=== PATIENT | female | born 1955 | race Caucasian/White ===

== ENCOUNTER 2018-10-12 01:50 | Observation (INO) | payer BC ==
[2018-10-12] MEDS ORDERED: FENTANYL CITRATE INJ/PF 100 MCG/2 ML AMPUL ONE ×3 (03:01→13:52)
[2018-10-12] MEDS ORDERED: FENTANYL CITRATE INJ/PF 100 MCG/2 ML AMPUL IV ONE (03:01)
--- NOTE | 2018-10-12 03:02 | ER Document Report ---
ED Hand/Wrist Injury - General Chief Complaint: Wrist Injury Stated Complaint: ARM PAIN Time Seen by Provider: 10/12/18 02:54 Notes: 60-year-old female ER to ER transfer to see hand surgeon for left radial artery laceration. Patient was opening a package and cut it with a box knife. Surgeons at [facility] could not locate the proximal distal edges of the radial artery. Dr. Colvin insulted with Dr. Calderón who accepted patient. Bleeding was controlled prior to transfer. TRAVEL OUTSIDE OF THE [place] IN LAST 30 DAYS: No - Related Data Allergies/Adverse Reactions: azithromycin Allergy (Verified 10/12/18 02:27) cephalexin [From Keflex] Allergy (Verified 10/12/18 02:22) Past Medical History - General Information source: Patient - Social History Smoking Status: Never Smoker Frequency of alcohol use: None Drug Abuse: None Lives with: Spouse/Significant other Family History: Reviewed & Not Pertinent Patient has suicidal ideation: No Patient has homicidal ideation: No - Past Medical History Cardiac Medical History: Reports: Hx Hypercholesterolemia Renal/ Medical History: Reports: Hx Kidney Stones. Denies: Hx Peritoneal Dialysis GI Medical History: Reports: Hx Gastroesophageal Reflux Disease Past Surgical History: Reports: Hx Cholecystectomy, Hx Gynecologic Surgery - D&C, Hx Tonsillectomy Review of Systems - Review of Systems Notes: Constitutional: denies: Chills, Diaphoresis, Fever, Malaise, Weakness EENT: denies: Eye discharge, Blurred vision, Tearing, Double vision, Nose congestion, Nose discharge, Throat swelling, Mouth pain Cardiovascular: denies: Palpitations, Heart racing, Orthopnea, Dyspnea, Chest pain Respiratory: denies: Cough, Hurts to breathe, Wheezing, Shortness of breath Gastrointestinal: denies: Abdominal pain, Diarrhea, Nausea, Vomiting, Black stools, bright red blood in stool Genitourinary: denies: Burning, Dysuria, Discharge, Frequency, Flank pain, Hematuria Musculoskeletal: denies: Joint pain, Joint swelling, Muscle pain, Muscle stiffness, back pain. Laceration to left wrist radial artery laceration. Hematologic/Lymphatic: denies: Anemia, Easy bleeding, Easy bruising, Blood clots Neurological/Psychological: denies: Confusion, Dementia, Depression, Loss of consciousness Skin: No lesions, no masses, no skin breakdown, no abscesses. Laceration to the left wrist. Physical Exam - Vital signs Vitals: Temp Pulse 97.9 F 65 10/12/18 01:53 10/12/18 01:53 Interpretation: Normal - General General appearance: Appears well, Alert - HEENT Head: Normocephalic, Atraumatic Eyes: Normal Pupils: PERRL - Respiratory Respiratory status: No respiratory distress Chest status: Nontender Breath sounds: Normal Chest palpation: Normal - Cardiovascular Rhythm: Regular Heart sounds: Normal auscultation Murmur: No - Abdominal Inspection: Normal Distension: No distension Bowel sounds: Normal Tenderness: Nontender Organomegaly: No organomegaly - Back Back: Normal, Nontender - Extremities General upper extremity: Tender, Normal color, Normal ROM, Normal temperature, Other - There is a 1 cm deep linear laceration over the radial artery on the volar aspect of the left wrist. Brisk bleeding present after removing dressing. General lower extremity: Normal inspection, Nontender, Normal color, Normal ROM, Normal temperature, Normal weight bearing. No: Richard's sign - Neurological Neuro grossly intact: Yes Cognition: Normal Orientation: AAOx4 [place] Coma Scale Eye Opening: Spontaneous Raymon Coma Scale Verbal: Oriented [place] Coma Scale Motor: Obeys Commands [place] Coma Scale Total: 15 Speech: Normal Motor strength normal: LUE, RUE, LLE, RLE Sensory: Normal - Psychological Associated symptoms: Normal affect, Normal mood - Skin Skin Temperature: Warm Skin Moisture: Dry Skin Color: Normal Course - Re-evaluation Re-evalutation: 10/12/18 03:09 Based on my evaluation there is a deep laceration more likely involving the left radial artery. There was a large amount of bleeding after taking the dressings down so I repacked with some quick clot. Bleeding was controlled with pressure. Will consult with hand specialist shortly. 10/12/18 03:10 Tetanus updated and given at other hospital. Will hold on antibiotics until surgical eval and closer to OR cut time. 10/12/18 07:28 Orthopedic surgeon is here. Will likely take the OR shortly. - Vital Signs Vital signs: Temp Pulse Resp BP Pulse Ox 98.2 F 65 19 99/59 L 97 10/12/18 06:52 10/12/18 01:53 10/12/18 06:01 10/12/18 06:00 10/12/18 06:01 Discharge - Discharge Clinical Impression: Laceration of left radial artery Qualifiers: Encounter type: initial encounter Qualified Code(s): S55.112A - Laceration of radial artery at forearm level, left arm, initial encounter Condition: Good Disposition: ADMITTED INPATIENT Admitting Provider: [facility] Unit Admitted: OR
[2018-10-12] MEDS: CLINDAMYCIN 900 MG/D5W RTU 900 MG/50 ML RTUPB IV SCH ×3 (06:48→21:15)
[2018-10-12] MEDS ORDERED: RINGERS SOLUTION,LACTATED 1,000 ML IV PRN (07:44)
[2018-10-12] MEDS ORDERED: DEXTROSE 40% GEL 15 GM TUBE PO PRN ×2 (07:44)
[2018-10-12] MEDS ORDERED: GLUCAGON,HUMAN RECOMB 1 MG INJ SUBCUT PRN (07:44)
[2018-10-12] MEDS ORDERED: DEXTROSE 50%-WATER 25 GM/50 ML DISP.SYRIN IV PRN ×2 (07:44)
[2018-10-12] MEDS ORDERED: ONDANSETRON HCL INJ/PF 4 MG/2 ML SDV IV PRN ×2 (07:44→12:41)
[2018-10-12] MEDS ORDERED: MORPHINE SULFATE 10 MG/ML INJ IV PRN ×2 (07:47→12:41)
--- NOTE | 2018-10-12 07:51 | PDOC H&P ---
History of Present Illness Admission Date/PCP: 10/12/18 07:40 Patient complains of: Left wrist laceration History of Present Illness: GABBI CHENG is a 63 year old female who on 10/11/2018 inadvertently cut her left wrist opening zip ties. Patient was originally taken to [facility] where the area was irrigated and explored demonstrating possible radial artery laceration with pulsatile bleeding. Compression dressing was placed which did control the bleeding. Patient was then transferred to [place] for definitive treatment. Patient states her pain is currently controlled. She originally had numbness when the tourniquet was on her arm but that has resolved. Current pain /10. Past Medical History Cardiac Medical History: Reports: Hyperlipidema GI Medical History: Reports: Gastroesophageal Reflux Disease Past Surgical History Past Surgical History: Reports: Cholecystectomy, Tonsillectomy Social History Lives with: Spouse/Significant other Smoking Status: Never Smoker Family History Family History: Reviewed & Not Pertinent Parental Family History Reviewed: No Children Family History Reviewed: No Sibling(s) Family History Reviewed.: No Medication/Allergy Allergies/Adverse Reactions: azithromycin Allergy (Verified 10/12/18 02:27) cephalexin [From Keflex] Allergy (Verified 10/12/18 02:22) Review of Systems Constitutional: ABSENT: chills, fever(s), headache(s), weight gain, weight loss Eyes: ABSENT: visual disturbances Ears: ABSENT: hearing changes Cardiovascular: ABSENT: chest pain, dyspnea on exertion, edema, orthropnea, palpitations Respiratory: ABSENT: cough, hemoptysis Gastrointestinal: ABSENT: abdominal pain, constipation, diarrhea, hematemesis, hematochezia, nausea, vomiting Genitourinary: ABSENT: dysuria, hematuria Musculoskeletal: PRESENT: as per HPI Integumentary: ABSENT: rash, wounds Neurological: ABSENT: abnormal gait, abnormal speech, confusion, dizziness, focal weakness, syncope Psychiatric: ABSENT: anxiety, depression, homidical ideation, suicidal ideation Endocrine: ABSENT: cold intolerance, heat intolerance, menstrual abnormalities, polydipsia, polyuria Hematologic/Lymphatic: ABSENT: easy bleeding, easy bruising, lymphadenopathy Physical Exam Vital Signs: Temp Pulse Resp BP Pulse Ox 98.2 F 65 19 99/59 L 97 10/12/18 06:52 10/12/18 01:53 10/12/18 06:01 10/12/18 06:00 10/12/18 06:01 Intake & Output 10/11/18 10/12/18 10/13/18 06:59 06:59 06:59 Weight 84.2 kg General appearance: PRESENT: no acute distress, well-developed, well-nourished Head exam: PRESENT: atraumatic, normocephalic Eye exam: PRESENT: conjunctiva pink, EOMI, PERRLA. ABSENT: scleral icterus Ear exam: PRESENT: normal external ear exam Mouth exam: PRESENT: moist, tongue midline Neck exam: PRESENT: full ROM. ABSENT: carotid bruit, JVD, lymphadenopathy, thyromegaly Respiratory exam: PRESENT: unlabored Cardiovascular exam: PRESENT: RRR. ABSENT: diastolic murmur, rubs, systolic murmur Pulses: PRESENT: normal dorsalis pedis pul, +2 pedal pulses bilateral Vascular exam: PRESENT: normal capillary refill GI/Abdominal exam: PRESENT: normal bowel sounds, soft. ABSENT: distended, guarding, mass, organolmegaly, rebound, tenderness Rectal exam: PRESENT: deferred Musculoskeletal exam: PRESENT: other - Left wrist: Dressing intact no evidence of bleeding through the dressing. Intact DIP/PIP/MCP joint flexion/extension. EPL/FPL intact. Cap refill less than 2 seconds normal skin turgor. Intact sensation to light touch throughout median ulnar nerve distribution. No pain with passive stretch. Compartments soft and compressible no sign of compartment syndrome Neurological exam: PRESENT: alert, awake, oriented to person, oriented to place, oriented to time, oriented to situation, CN II-XII grossly intact. ABSENT: motor sensory deficit Psychiatric exam: PRESENT: appropriate affect, normal mood. ABSENT: homicidal ideation, suicidal ideation Skin exam: PRESENT: dry, intact, warm. ABSENT: cyanosis, rash Assessment & Plan - Diagnosis (1) Laceration of left radial artery Qualifiers: Encounter type: initial encounter Qualified Code(s): S55.112A - Laceration of radial artery at forearm level, left arm, initial encounter Is this a current diagnosis for this admission?: Yes Plan: Patient was transferred due to radial artery laceration however she does have good collateral circulation likely indicative of complete arch and thus ligation of radial artery is a reasonable treatment option at this point we discussed this treatment option and decision was made to proceed with operative intervention which includes exploration left wrist with possible artery repair versus ligation and surgery as indicated. Patient has verbalized understanding and consented for surgical procedure.
[2018-10-12] MEDS ORDERED: PHENYLEPHRINE HCL INJ/PF 10 MG/1 ML SDV ONE (08:11)
[2018-10-12] MEDS ORDERED: GLYCOPYRROLATE 1 MG/5 ML VIAL ONE (08:11)
[2018-10-12] MEDS ORDERED: SUCCINYLCHOLINE CHLORIDE INJ 200 MG/10 ML VIAL ONE (08:11)
--- NOTE | 2018-10-12 08:30 | RADIOLOGY REPORT (SQ) ---
EXAM DESCRIPTION: CHEST SINGLE VIEW COMPLETED DATE/TIME: 10/12/2018 8:03 am REASON FOR STUDY: Preop COMPARISON: None. EXAM PARAMETERS: NUMBER OF VIEWS: One view. TECHNIQUE: Single frontal radiographic view of the chest acquired. RADIATION DOSE: NA LIMITATIONS: None. FINDINGS: LUNGS AND PLEURA: No opacities, masses or pneumothorax. No pleural effusion. MEDIASTINUM AND HILAR STRUCTURES: No masses. Contour normal. HEART AND VASCULAR STRUCTURES: Cardiomegaly. BONES: No acute findings. HARDWARE: None in the chest. OTHER: No other significant finding. IMPRESSION: Cardiomegaly without acute abnormality of the lungs in AP projection. TECHNICAL DOCUMENTATION: JOB ID: [id number] [employer]- All Rights Reserved Reading location - IP/workstation name: [email or web address]
[2018-10-12 09:16] LABS: ABSOLUTE BASOPHILS # (AUTO) 0.1 10^3/uL (0.0-0.2); ABSOLUTE LYMPHOCYTES (AUTO) 2.1 10^3/uL (0.5-4.7); ABSOLUTE MONOCYTES (AUTO) 0.6 10^3/uL (0.1-1.4); ABSOLUTE NEUT (AUTO) 5.4 10^3/uL (1.7-8.2); EOSINOPHILS % (AUTO) 0.4 % (0-6); HEMATOCRIT 36.8 % (36.0-47.0); HEMOGLOBIN 12.4 g/dL (12.0-15.5); LYMPHOCYTES % (AUTO) 26.2 % (13-45); MEAN CORPUSCULAR HEMOGLOBIN 32.3 pg (27.0-33.4); MEAN CORPUSCULAR HGB CONC 33.7 g/dL (32.0-36.0); MEAN CORPUSCULAR VOLUME 96 fl (80-97); MONOCYTES % (AUTO) 6.8 % (3-13); PLATELET COUNT 133 10^3/uL (150-450); RED BLOOD COUNT 3.85 10^6/uL (3.72-5.28); SEGMENTED NEUTROPHILS % (AUTO) 65.6 % (42-78); TOTAL CELLS COUNTED % (AUTO) 100 %; WHITE BLOOD COUNT 8.2 10^3/uL (4.0-10.5)
[2018-10-12 09:31] LABS: BLOOD UREA NITROGEN 19 mg/dL (7-20); CALCIUM 9.2 mg/dL (8.4-10.2); CARBON DIOXIDE 27 mmol/L (22-30); CHLORIDE 110 mmol/L (98-107); GLUCOSE 93 mg/dL (75-110); POTASSIUM 4.4 mmol/L (3.6-5.0); SODIUM 141.4 mmol/L (137-145)
[2018-10-12 09:50] LABS: ANION GAP 5 (5-19)
[2018-10-12] MEDS ORDERED: BUPIVACAINE HCL 0.5 % INJ/PF 30 ML SDV ONE (10:29)
[2018-10-12] MEDS ORDERED: HEPARIN SOD (PORCINE) 1,000 UNIT/ML 10 ML VIAL ONE (10:34)
[2018-10-12] MEDS ORDERED: MIDAZOLAM 2 MG/2 ML INJ ONE (10:40)
[2018-10-12] MEDS ORDERED: ONDANSETRON HCL INJ/PF 4 MG/2 ML SDV ONE (10:41)
[2018-10-12] MEDS ORDERED: DEXAMETHASONE SOD PHOSPHATE INJ 4 MG/1 ML VIAL ONE (10:41)
[2018-10-12] MEDS ORDERED: PROPOFOL INJ 200 MG/20 ML VIAL IV ONE (10:41)
[2018-10-12] MEDS ORDERED: CLINDAMYCIN PHOSPHATE INJ 300 MG/2 ML SDV ONE ×2 (12:28→12:29)
[2018-10-12] MEDS ORDERED: PROMETHAZINE HCL INJ 25 MG/1 ML VIAL IV PRN ×2 (12:41)
[2018-10-12] MEDS ORDERED: FENTANYL CITRATE INJ/PF 100 MCG/2 ML AMPUL IV PRN ×3 (12:41)
[2018-10-12] MEDS ORDERED: MEPERIDINE HCL/PF INJ 25 MG/1 ML DISP.SYRIN IV PRN (12:41)
[2018-10-12] MEDS ORDERED: DIPHENHYDRAMINE HCL 50 MG/ML VIAL IV PRN (12:41)
--- NOTE | 2018-10-12 13:30 | Operative Report ---
Operative Report DATE OF SURGERY: 10/12/18 PREOPERATIVE DIAGNOSIS: Left wrist radial artery laceration POSTOPERATIVE DIAGNOSIS: Same OPERATION: Repair of left wrist radial artery SURGEON: ROVERTO RAPHAEL ANESTHESIA: GA COMPLICATIONS: None ESTIMATED BLOOD LOSS: Minimal PROCEDURE: Indication for above procedure: 63-year-old female who was cutting zip ties when she inadvertently hit her wrist. Patient was taken the [facility] where there was significant bleeding noted. Exploration demonstrated radial artery involvement. At that point patient was sent to [facility] for definitive treatment. After examining the patient we discussed risks and benefits of the operative procedure patient verbalized understanding consented for surgical procedure. Procedure In Detail: Patient was seen and evaluated in the preoperative holding area. The LEFT upper extremity was initialized and marked. Patient received 600 mg of clindamycin IV IV for bacterial prophylaxis. Patient was taken back to the operative room where transferred to the operative table and placed under general anesthesia. Once they were adequately anesthetized a nonsterile tourniquet was placed on the upper extremity. A surgical team debriefing was performed ensuring all instrumentation was available, the surgical procedure was discussed with possible concerns reviewed. Tourniquet was placed around the left upper extremity and inflated to 250 mmHg. Extremity was prepped with Betadine and draped in a sterile fashion. Timeout was done identifying correct patient extremity and procedure everyone in attendance previous and verbalized no concerns. The patient's 1 cm laceration was extended proximally and distally. Blunt dissection was performed. The superficial radial nerve was identified and remained intact neuro lysis was performed. No tendon involvement including the FCR or first dorsal compartment tendons. The radial artery and its venous communicantes were identified. The small veins were coagulated with bipolar cautery. The radial artery edges were then debrided and adventitia stripped. Tourniquet was then deflated heparinized saline was placed through the proximal and distal aspect to ensure adequate flow. Once flow was reestablished clamp was placed proximally and distally. The artery was then reapproximated with mul tiple 8 oh simple nylon sutures. At completion of anastomosis clamps were removed and adequate flow was determined proximally and distally. Patient had normal capillary refill and skin turgor. Wound was copiously irrigated with normal saline. Skin was closed with interrupted 4-0 nylon suture. Wound was dressed Xeroform 4 x 4's and patient was placed in a volar resting splint. Sponge counts, instrument counts, needle counts were correct. Patient was then awoken from anesthesia. Transferred from the operating room table to the operating room stretcher. There was no intraoperative complications patient tolerated procedure well stable to PACU. Postop plan: Patient will be discharged home on 10/13/2018 with p.o. antibiotics and aspirin.
[2018-10-12] MEDS ORDERED: ENOXAPARIN SODIUM INJ 40 MG/0.4 ML DISP.SYRIN SUBCUT SCH (17:00)
[2018-10-12 23:27] VITALS: BP 104/56
[2018-10-13] MEDS: CLINDAMYCIN 900 MG/D5W RTU 900 MG/50 ML RTUPB IV SCH (05:04)
--- NOTE | 2018-10-13 07:55 | PDOC DISCHARGE SUMMARY ---
General - Admit/Disc Date/PCP Admission Date/Primary Care Provider: 10/12/18 07:40 Discharge Date: 10/13/18 - Discharge Diagnosis (1) Laceration of left radial artery Is this a current diagnosis for this admission?: Yes - Additional Information Resuscitation Status: Full Code Discharge Diet: As Tolerated Discharge Activity: No Lifting Over 10 Pounds, No Lifting/Push/Pulling Home Medications: Atorvastatin Calcium [Lipitor 10 mg Tablet] 10 mg PO QHS 10/12/18 Cetirizine HCl [Zyrtec 10 mg Tablet] 10 mg PO DAILY 10/12/18 Cholecalciferol (Vitamin D3) [Vitamin D3 1000 Unit Tablet] 1,000 unit PO DAILY 10/12/18 Cyanocobalamin (Vitamin B-12) [Vitamin B-12 1000 mcg Tablet] 1,000 mcg PO DAILY 10/12/18 [place]-3/Dha/Epa/Fish Oil [Fish Oil Dr 500 mg Softgel] 1,500 mg PO BID 10/12/18 Pantoprazole Sodium [Protonix [address] Tablet] 40 mg PO DAILY 10/12/18 Potassium Citrate [Potassium Citrate ER] 10 meq PO BID 10/12/18 History of Present Illness History of Present Illness: GABBI CHENG is a 63 year old female who on 10/11/2018 inadvertently cut her left wrist opening zip ties. Patient was originally taken to [facility] where the area was irrigated and explored demonstrating possible radial artery laceration with pulsatile bleeding. Compression dressing was placed which did control the bleeding. Patient was then transferred to [place] for definitive treatment. Patient states her pain is currently controlled. She originally had numbness when the tourniquet was on her arm but that has resolved. Current pain 4/10. Hospital Course Hospital Course: Patient was admitted to the orthopedic service on 10/12/2018. Underwent radial artery repair on 10/12/2018. Patient tolerated procedure well. On postop day #1 pain was controlled. No issues overnight. Was started on DVT prophylaxis and a ntibiotics prophylactically. Patient progressed appropriate throughout her hospital course and decision was made for discharge to home. Physical Exam Vital Signs: Temp Pulse Resp BP Pulse Ox 98.0 F 60 16 104/56 L 94 10/12/18 23:26 10/12/18 23:26 10/12/18 23:26 10/12/18 23:26 10/12/18 23:26 Intake & Output 10/12/18 10/13/18 10/14/18 06:59 06:59 06:59 Intake Total 1744 Output Total 6 Balance 1738 Weight 84.2 kg 71.6 kg General appearance: PRESENT: no acute distress, well-developed, well-nourished Head exam: PRESENT: atraumatic, normocephalic Eye exam: PRESENT: conjunctiva pink, EOMI, PERRLA. ABSENT: scleral icterus Ear exam: PRESENT: normal external ear exam Mouth exam: PRESENT: moist, tongue midline Neck exam: PRESENT: full ROM. ABSENT: carotid bruit, JVD, lymphadenopathy, thyromegaly Cardiovascular exam: PRESENT: RRR. ABSENT: diastolic murmur, rubs, systolic murmur Pulses: PRESENT: normal dorsalis pedis pul, +2 pedal pulses bilateral Vascular exam: PRESENT: normal capillary refill GI/Abdominal exam: PRESENT: normal bowel sounds, soft. ABSENT: distended, guarding, mass, organolmegaly, rebound, tenderness Rectal exam: PRESENT: deferred Musculoskeletal exam: PRESENT: other - Left upper extremity: Splint intact. Intact DIP/PIP joint flexion. EPL/FPL intact. Hypoesthesias on the dorsum of the thumb proximal phalanx. Cap refill less than 2 seconds. Normal skin turgor. Compartments soft and compressible no sign of compartment syndrome. Neurological exam: PRESENT: alert, awake, oriented to person, oriented to place, oriented to time, oriented to situation, CN II-XII grossly intact. ABSENT: motor sensory deficit Psychiatric exam: PRESENT: appropriate affect, normal mood. ABSENT: homicidal ideation, suicidal ideation Skin exam: PRESENT: dry, intact, warm. ABSENT: cyanosis, rash Results Laboratory Results: 10/12/18 08:48 10/12/18 08:48 10/12/18 10/12/18 08:48 08:48 WBC 8.2 RBC 3.85 Hgb 12.4 Hct 36.8 MCV 96 MCH 32.3 MCHC 33.7 RDW 14.0 Plt Count 133 L Seg Neutrophils % 65.6 Lymphocytes % 26.2 Monocytes % 6.8 Eosinophils % 0.4 Basophils % 1.0 Absolute Neutrophils 5.4 Absolute Lymphocytes 2.1 Absolute Monocytes 0.6 Absolute Eosinophils 0.0 Absolute Basophils 0.1 Sodium 141.4 Potassium 4.4 Chloride 110 H Carbon Dioxide 27 Anion Gap 5 BUN 19 Creatinine 0.59 Est GFR ( Amer) > 60 Est GFR (Non-Af Amer) > 60 Glucose 93 Calcium 9.2 Impressions: Chest X-Ray 10/12/18 07:46 IMPRESSION: Cardiomegaly without acute abnormality of the lungs in AP projec tion. Qualifiers - * PATIENT BEING DISCHARGED WITH ANY OF THE FOLLOWING DIAGNOSIS: No Acute Heart Failure - Is this a Heart Failure Patient?: No Plan Discharge Plan: Patient progressed appropriately and decision was made for discharge to home on 10/13/2018. Patient will continue p.o. antibiotics prophylactically. Will also continue baby aspirin 81 mg p.o. daily. Patient was given Percocet for pain. She is to call with any questions or concerns or increasing pain, redness, swelling or temperature greater than 101.5. Patient was read above instructions understood above instructions and orthopedically stable for discharge to home on 10/13/2018
== END 2018-10-13 10:06 | disposition home or self-care (01) ==
LOC: ER 01:50 → EH 07:40 → INTOOBSV 07:40 → 4S 14:41
PROVIDERS: ADMIT Orthopaedic Surgery; ATTEND Orthopaedic Surgery
PROC: 03QC0ZZ Repair Left Radial Artery, Open Approach (ICD-10-PCS; principal; 2018-10-12 12:00)
DX: S65.112A Laceration of radial artery at wrist and hand level of left arm, initial encounter (principal); S61.512A Laceration without foreign body of left wrist, initial encounter; W26.0XXA Contact with knife, initial encounter; Y93.89 Activity, other specified
CPT/HCPCS: 99285; 96375; 96365; 36415; 85025; 80048; 71045; 01840; 35206; G0378 ×3; J2250; J3490 ×4; J1100; J3010; J1644; J2270; J1650; J2370; J0330; J2405; J7120; J2704; 1840